=== PATIENT | female | born 1970 | race Caucasian/White ===

== ENCOUNTER 2017-06-14 07:33 | Day surgery (SDC) | payer MEDICARE, MEDICAID ==
[~2017-06-14 07:33] MED LIST: ACETAMINOPHEN 1,000 MG/100 ML BTL IV ONE
[2017-06-14] MEDS ORDERED: BUPIVACAINE 0.25% W/EPI MPF 30ML VIAL IVP ONE (12:41)
[2017-06-14] MEDS ORDERED: MIDAZOLAM HCL 2MG/2ML VIAL IV ONE (14:00)
[2017-06-14] MEDS ORDERED: LIDOCAINE 2% MDV (20MG/ML) 20ML VIAL IV ONE (14:00)
[2017-06-14] MEDS ORDERED: FENTANYL PF 100MCG/2ML VIAL IV ONE (14:00)
[2017-06-14] MEDS ORDERED: PROPOFOL 10 MG/ML VIAL IV ONE (14:00)
[2017-06-14] MEDS ORDERED: HYDROCODONE/APAP 5/325MG TABLET PO ONE (14:27)
--- NOTE | 2017-06-17 06:01 | Operative Note ---
DATE OF SURGERY: 06/14/2017 Surgeon: Asim Downing DO PREOPERATIVE DIAGNOSES: 1. Dysplastic nevus, left foot. 2. Dysplastic nevus, right lower leg. POSTOPERATIVE DIAGNOSES: 1. Dysplastic nevus, left foot. 2. Dysplastic nevus, right lower leg. OPERATION: Wide excision of dysplastic nevus of left foot and wide excision of dysplastic nevus of right lower leg. PROCEDURE: The patient is a 46-year-old female who had biopsies done by Dermatology. She came the operating room and placed in a supine position. Local and IV sedation was given per the department of anesthesia. The patient's foot and leg were prepped and draped in the usual fashion. Starting on the left, the area around the dysplastic nevus was anesthetized with a total of 3 mL of 0.25% Sensorcaine with epinephrine. Wide excision was done measuring 1.5 x 1 cm. This was carried down to subcutaneous tissue with cautery. This was then passed off the field. Left foot measured 2 x 3 cm in the subcu. Attention now turned to the right holcomb where this area was anesthetized with a total of 3 mL with 0.25% Sensorcaine with epinephrine. A 4 x 2 cm incision was done into the skin. This was carried down to the subcutaneous tissue with cautery. This was also passed off the field. Each wound was closed with 3-0 nylon in interrupted fashion. She tolerated the procedure well. Final pathology pending. CC: Herbert TO
== END 2017-06-14 11:05 | disposition home or self-care (01) ==
LOC: SUR 07:33
PROVIDERS: ATTEND Surgery
DX: D22.72 Melanocytic nevi of left lower limb, including hip (principal); D22.71 Melanocytic nevi of right lower limb, including hip; E78.00 Pure hypercholesterolemia, unspecified; M79.7 Fibromyalgia
CPT/HCPCS: 11423; 11406; 00400; 88305; J3010

== ENCOUNTER 2017-07-21 07:53 | Day surgery (SDC) | payer MEDICARE, MEDICAID ==
[2017-07-21] MEDS ORDERED: LIDOCAINE 1% W/EPI 1:200,000 MPF 30ML SQ ONE (11:02)
[2017-07-21] MEDS ORDERED: BUPIVACAINE 0.5% W/EPI MPF 30 ML VIAL IVP ONE (11:02)
[2017-07-21] MEDS ORDERED: DEXAMETHASONE PRESERVATIVE FREE 10MG/ML VIAL IV ONE (11:02)
[2017-07-21] MEDS ORDERED: LIDOCAINE 2% MDV (20MG/ML) 20ML VIAL IV ONE (14:00)
[2017-07-21] MEDS ORDERED: PROPOFOL 10 MG/ML VIAL IV ONE (14:00)
[2017-07-21] MEDS ORDERED: MIDAZOLAM HCL 2MG/2ML VIAL IV ONE (14:00)
[2017-07-21] MEDS ORDERED: *PACU ONLY* KETAMINE HCL 10 MG/ML (20ML) VIAL IV ONE (14:00)
[2017-07-21] MEDS ORDERED: FENTANYL PF 100MCG/2ML VIAL IV ONE (14:00)
--- NOTE | 2017-07-21 16:14 | Operative Note - [facility] ---
DATE OF SURGERY: 07/21/17 PREOPERATIVE DIAGNOSIS: CERVICAL SPONDYLOSIS WITHOUT MYELOPATHY, ICD-10 CODE = M47.812. OPERATION: RADIOFREQUENCY RHIZOTOMY RIGHT CERVICAL FACETS 3-4, 4-5, 5-6 , AND 6-7. SURGEON: AJ CARTER D.O. ANESTHESIA: LOCAL SEDATION. ANESTHESIA PROVIDER: CESAR DIAZ CRNA. INDICATION: This patient presents with pain, which is right-sided neck and shoulder. Diagnostics show extensive and multiple level endplate spurring and spondylosis. PROCEDURE: Intravenous line, vital sign monitoring, IV sedation, prepped, draped, sterile technique. Under imaging, cervical facet levels at 3-4, 4-5, 5-6 , and 6-7 marked and infiltrated. A 22-gauge rhizotomy cannula positioned. Stimulation trials conducted. Rhizotomy burn performed. Local with anti- inflammatory into the sites. Topical antibiotics. Sterile dressing applied. We will monitor and evaluate. cc: Dr. Suresh JOB NUMBER: [id number] MTDD
== END 2017-07-21 10:22 | disposition home or self-care (01) ==
LOC: SUR 07:53
PROVIDERS: ATTEND Pain Medicine Interventional Pain Medicine
DX: M47.812 Spondylosis without myelopathy or radiculopathy, cervical region (principal); M79.7 Fibromyalgia
CPT/HCPCS: 64633; 64634 ×3; 01936; J1100; J3010

== ENCOUNTER 2017-08-29 11:46 | Emergency (ER) | payer MEDICARE, MEDICAID ==
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
[2017-08-29] MEDS ORDERED: KETOROLAC 30 MG/ML VIAL IM ONE (12:11)
[2017-08-29] MEDS ORDERED: HYDROMORPHONE HCL 1MG/ML **SYRINGE IM ONE (12:37)
--- NOTE | 2017-08-30 07:38 | RADIOLOGY REPORT ---
EXAM: LEFT ANKLE HISTORY: INJURY. TECHNIQUE: Three views of the left ankle were performed. FINDINGS: No evidence of fracture or dislocation. There is soft tissue swelling. IMPRESSION: NO EVIDENCE OF FRACTURE OR DISLOCATION. THERE IS SOFT TISSUE SWELLING. JOB NUMBER: [id number] MTDD
--- NOTE | 2017-08-30 07:40 | RADIOLOGY REPORT ---
EXAM: LEFT FOOT HISTORY: PAIN. TECHNIQUE: Three views of the left foot were performed. FINDINGS: There is a fracture deformity of the fifth metatarsal bone. The remainder of the osseous structures are intact. IMPRESSION: FRACTURE DEFORMITY OF THE FIFTH METATARSAL BONE. THE REMAINDER OF THE OSSEOUS STRUCTURES MISTY INTACT. JOB NUMBER: [id number] MTDD
== END 2017-08-29 13:16 | disposition home or self-care (01) ==
LOC: ER 11:46
DX: S92.352A Displaced fracture of fifth metatarsal bone, left foot, initial encounter for closed fracture (principal); M25.572 Pain in left ankle and joints of left foot; W10.9XXA Fall (on) (from) unspecified stairs and steps, initial encounter
CPT/HCPCS: 29425; 99283; 96372; 99284; 73610; 73630; J1885

== ENCOUNTER 2017-09-16 12:39 | Day surgery (SDC) | payer MEDICARE, MEDICAID ==
[2017-09-16] MEDS ORDERED: LIDOCAINE 2% MDV (20MG/ML) 20ML VIAL IV ONE (12:40)
[2017-09-16] MEDS ORDERED: FENTANYL PF 100MCG/2ML VIAL IV ONE (12:40)
[2017-09-16] MEDS ORDERED: PROPOFOL 10 MG/ML VIAL IV ONE (12:40)
--- NOTE | 2017-09-17 12:30 | Operative Note ---
DATE OF SURGERY: 09/16/2017 OPERATION: ESOPHAGOGASTRODUODENOSCOPY with biopsy. PREOPERATIVE DIAGNOSIS: Dysphagia and heartburn. POSTOPERATIVE DIAGNOSES: 1. Irregular Z line with proximal migrating columnar border suggestive of short-segment Skaggs's. 2. Gastritis. PROCEDURE: After informed consent was obtained from the patient, she was placed in the left lateral decubitus position in the endoscopy suite, sedated and monitored by the department of anesthesia. A well-lubricated [id number] gastroscope was placed in the posterior oropharynx and under direct visualization passed to the proximal esophagus. The endoscope was advanced through the proximal, mid, and distal esophagus. The GE junction demonstrated a proximal migrating columnar tongue and some irregular islands suggestive of short-segment Skaggs's. The remainder of the esophagus was normal. No strictures or changes suggestive of EOE were seen. The gastric body demonstrated adherent hematin in the body, fundus, and proximal antrum. There were some mild patchy erythematous changes in the antrum. The duodenal bulb and sweep were unremarkable. J-turn views of the proximal stomach revealed scattered flecks of heme. The endoscope was straightened. Antral and gastric body biopsies were randomly obtained. The columnar tongue and islands in the distal esophagus were biopsied as well. The endoscope was removed from the patient. RECOMMENDATIONS: I would suggest the patient start a proton pump inhibitor such as pantoprazole 40 mg once daily. Further recommendations based on tissue pathology. As always, thank you for allowing me to participate in the healthcare of your patients. CC: Dr. Reyes TO
== END 2017-09-16 13:50 | disposition home or self-care (01) ==
LOC: HOP 12:39
PROVIDERS: ATTEND Internal Medicine Gastroenterology
DX: R13.10 Dysphagia, unspecified (principal); R12 Heartburn; K22.70 Barrett's esophagus without dysplasia; K31.89 Other diseases of stomach and duodenum; K29.70 Gastritis, unspecified, without bleeding; E78.00 Pure hypercholesterolemia, unspecified; I10 Essential (primary) hypertension; F41.9 Anxiety disorder, unspecified; F32.9 Major depressive disorder, single episode, unspecified; M79.7 Fibromyalgia
CPT/HCPCS: 43235; 00740; 88313; 88305; J3010

== ENCOUNTER 2019-11-15 05:51 | Day surgery (SDC) | payer MEDICARE, MEDICAID ==
[2019-11-15] MEDS ORDERED: PROPOFOL 10 MG/ML VIAL IV ONE (05:52)
[2019-11-15] MEDS ORDERED: LIDOCAINE 2% MDV (20MG/ML) 20ML VIAL IV ONE (05:52)
[2019-11-15] MEDS ORDERED: *PACU ONLY* KETAMINE HCL 10 MG/ML (20ML) VIAL IV ONE (05:52)
[2019-11-15] MEDS ORDERED: FENTANYL PF 100MCG/2ML VIAL IV ONE (05:52)
[2019-11-15] MEDS ORDERED: MIDAZOLAM HCL 2MG/2ML VIAL IV ONE (05:52)
[2019-11-15] MEDS ORDERED: RINGERS SOLUTION,LACTATED 1,000 ML IV ONE (06:10)
[2019-11-15] MEDS ORDERED: BUPIVACAINE 0.5% (5MG/ML) PF 30ML VIAL SQ ONE (07:35)
[2019-11-15] MEDS ORDERED: LIDOCAINE 1% W/EPI 1:200,000 MPF 30ML SQ ONE (07:35)
[2019-11-15] MEDS ORDERED: DEXAMETHASONE PRESERVATIVE FREE 10MG/ML VIAL SQ ONE (07:35)
[2019-11-15] MEDS ORDERED: BUPIVACAINE 0.5% W/EPI MPF 30 ML VIAL SQ ONE (07:35)
--- NOTE | 2019-11-15 07:56 | Operative Note - [place] ---
DATE OF SURGERY: 11/15/2019 PREOPERATIVE DIAGNOSIS: CERVICAL SPONDYLOSIS WITHOUT MYELOPATHY, ICD-10 CODE M47.812. OPERATION: FLUOROSCOPICALLY GUIDED INFILTRATIONAL BLOCK BILATERAL CERVICAL FACETS C2-C3, C3-C4, AND C4-C5. SURGEON: Chaz Hinojosa D.O. INDICATION: This patient presents with primary neck pain. Examination with tenderness of the cervical spine. Range of motion does cause pain in the neck with extension. Diagnostic imaging shows diffuse multiple level spondylosis of the facets. Previous procedures have been directed at the low back and leg. The selective epidural injection for her lower extremity pain appears to be helping. Her pain level currently 0-10 with respect to the low back and leg is a 2 and with respect to the neck and shoulder is an 8. Her treatment history has been conservatively based and unsuccessful. PROCEDURE: Intravenous line, vital sign monitoring, IV sedation, prepped and draped, sterile technique. Under imaging the cervical facets in the area of pain were identified and marked at C2-C3, C3-C4, and C4-C5 bilateral, each one of these points on the skin infiltrated with a 22-gauge needle into the facets. 1 ml of 0.5% Marcaine and Dexamethasone was injected at each of the sites bilaterally. The area was cleaned, topical antibiotic, sterile dressing applied. This represents the first cervical facet in a series of two for possible rhizotomy. JOB NUMBER: [id number] [facility]
== END 2019-11-15 08:08 | disposition home or self-care (01) ==
LOC: SUR 05:51
PROVIDERS: ATTEND Pain Medicine Interventional Pain Medicine
DX: M47.812 Spondylosis without myelopathy or radiculopathy, cervical region (principal); J44.9 Chronic obstructive pulmonary disease, unspecified; M06.9 Rheumatoid arthritis, unspecified; E11.9 Type 2 diabetes mellitus without complications; E78.00 Pure hypercholesterolemia, unspecified
CPT/HCPCS: 64490; 64491; 64492; 01992; 36416; 82948; J1100; J3010; J7120